=== PATIENT | female | born 1960 | race Caucasian/White ===

== ENCOUNTER → 2016-10-16 | Outpatient (CLI) | payer OTHER ==
[~2016-10-16] MED LIST: AMITRIPTYLINE 225 MG PO; AMOXICILLIN 50500 MG PO; CLONAZEPAM1 M1 PO; ESTRATEST TABL1 EACH PO; KAPIDEX60 MG PO; PROAIR HFA0.09 MG/AC IH; PROTONIX 40MG T40 MG PO; TOPAMAX15 MG PO
[2016-10-16 16:03] LABS: HEMOGLOBIN 14.6 g/dL (12.2-16.2); LYMPH # 3.3 K/mm3 (0.7-4.5); LYMPH % 27.5 % (10-50.0)
[2016-10-16 16:28] LABS: BUN 13 mg/dL (7-18); GFR (ESTIMATED) 65 ML/MIN (59-)
--- NOTE | 2016-10-19 05:48 | RADIOLOGY REPORT PS360 ---
CT ABD PELVIS W/O CONTRAST CLINICAL INDICATION: Abdominal pain, right lower quadrant pain, nausea, right flank pain ABD PAIN, NAUSEA ORDERING PHYSICIAN: Enrique Aldana MD PATIENT AGE: 56 years COMPARISON: 09/22/2012 TECHNIQUE: Axial images obtained with sagittal and coronal reformats. PROCEDURE: Oral Contrast: None IV Contrast: None . FINDINGS: Lower thorax: No acute finding ABDOMEN: Liver: No masses or biliary dilatation. Gallbladder: There are multiple gallstones present. Gallbladder wall may be slightly thickened. Ultrasound may be of further value. No biliary dilatation apparent. Pancreas: No masses or peripancreatic fluid collections. Spleen: Unremarkable. Adrenals: Unremarkable Kidneys/ureters: No masses. No renal calculi. No hydronephrosis. No perinephric fluid collections. No ureteral dilatation or obvious ureteral calculi. Stomach bowel: Nondistended. No obvious mass or thickening. Appendix: No evidence of appendicitis. PELVIS: Reproductive: Hysterectomy Bladder: Nondistended. No obvious stones or masses. ABDOMEN & PELVIS: Peritoneum: No abnormal fluid collections. No obvious inflammatory changes. No free air. Lymph nodes: No enlarged lymph nodes apparent. Vasculature: No evidence of abdominal aortic aneurysm. No retroperitoneal hemorrhage evident. Bones: No acute fracture IMPRESSION: 1. Cholelithiasis with suggestion of mild thickening of the gallbladder wall. Consider gallbladder ultrasound for more thorough evaluation. 2. Otherwise negative CT abdomen and pelvis
== END ==
LOC: LAB 15:56 → RAD 15:56
PROVIDERS: Internal Medicine
DX: R10.9 Unspecified abdominal pain (principal); R11.0 Nausea

== ENCOUNTER → 2016-10-27 | Outpatient (CLI) | payer OTHER, MEDICAID ==
[2016-10-27 14:26] LABS: HEMOGLOBIN 15.1 g/dL (12.2-16.2); LYMPH # 3.1 K/mm3 (0.7-4.5); LYMPH % 31.5 % (10-50.0)
[2016-10-27 15:56] LABS: BUN 6 mg/dL (7-18)
[2016-10-27 16:05] LABS: GFR (ESTIMATED) 65 ML/MIN (59-)
== END ==
LOC: LAB 14:07
PROVIDERS: Surgery
DX: K81.1 Chronic cholecystitis (principal)